=== PATIENT | female | born 1955 | race Caucasian/White ===

== ENCOUNTER 2021-09-23 16:08 | Outpatient (CLI) | payer MEDICARE, OTHER | END 2021-09-23 16:09 | disposition home or self-care (01) | LOC: CTENTCT 16:08 | PROVIDERS: ATTEND Otolaryngology Plastic Surgery within the Head & Neck | DX: J32.9 Chronic sinusitis, unspecified (principal) | CPT/HCPCS: 70486 ==

== ENCOUNTER 2022-03-12 08:53 | Day surgery (SDC) | payer MEDICARE, OTHER ==
[2022-03-10 11:50] VITALS: BMI 25.4
[2022-03-12] MEDS ORDERED: AFRIN NASAL MIST 15 ML BOT ONE ×2 (09:59→11:15)
[2022-03-12] MEDS ORDERED: Famotidine/PF 20 mg/2ml Vial ONE (10:37)
[2022-03-12] MEDS ORDERED: Scopolamine 1.5 mg/72 hour Patch ONE (10:38)
[2022-03-12] MEDS ORDERED: Lidocaine 1% w/Epinephrine 1:100K 20 ML VIAL ONE (11:15)
[2022-03-12] MEDS ORDERED: Midazolam HCl 2 mg/2 ml Vial ONE (11:20)
[2022-03-12] MEDS ORDERED: Fentanyl 250 MCG/5 ML VIAL ONE (11:20)
[2022-03-12] MEDS ORDERED: Fentanyl 100 MCG/2 ML VIAL ONE (12:58)
[2022-03-12] MEDS ORDERED: Hydrocodone-Acetamin 15 ML UDCUP ONE (14:14)
[2022-03-12] MEDS ORDERED: Lidocaine 1% PF 5 ML VIAL ONE (14:31)
[2022-03-12] MEDS ORDERED: Dexamethasone 20 MG/5 ML VIAL ONE (14:31)
[2022-03-12] MEDS ORDERED: Glycopyrrolate 0.2 MG/ML 5 ML SYRINGE ONE (14:31)
[2022-03-12] MEDS ORDERED: PROPOFOL 200 MG/20 ML VIAL ONE (14:31)
[2022-03-12] MEDS ORDERED: Rocuronium Bromide 10 MG/ML (10ML VIAL) ONE (14:31)
[2022-03-12] MEDS ORDERED: Ondansetron PF 4 MG/2 ML Vial ONE (14:31)
[2022-03-12] MEDS ORDERED: Succinylcholine 200 MG/10 ml SYRINGE FS ONE (14:31)
== END 2022-03-12 14:55 | disposition home or self-care (01) ==
LOC: SDC 08:53
PROVIDERS: ATTEND Otolaryngology Plastic Surgery within the Head & Neck
PROC: 8E09XBZ Computer Assisted Procedure of Head and Neck Region (ICD-10-PCS; principal; 2022-03-12)
PROC: 09BT8ZZ Excision of Left Frontal Sinus, Via Natural or Artificial Opening Endoscopic (ICD-10-PCS; 2022-03-12)
PROC: 099S8ZZ Drainage of Right Frontal Sinus, Via Natural or Artificial Opening Endoscopic (ICD-10-PCS; 2022-03-12)
PROC: 099R8ZZ Drainage of Left Maxillary Sinus, Via Natural or Artificial Opening Endoscopic (ICD-10-PCS; 2022-03-12)
PROC: 099Q8ZZ Drainage of Right Maxillary Sinus, Via Natural or Artificial Opening Endoscopic (ICD-10-PCS; 2022-03-12)
PROC: 09TV8ZZ Resection of Left Ethmoid Sinus, Via Natural or Artificial Opening Endoscopic (ICD-10-PCS; 2022-03-12)
PROC: 09TU8ZZ Resection of Right Ethmoid Sinus, Via Natural or Artificial Opening Endoscopic (ICD-10-PCS; 2022-03-12)
PROC: 09TL7ZZ Resection of Nasal Turbinate, Via Natural or Artificial Opening (ICD-10-PCS; 2022-03-12)
DX: J32.8 Other chronic sinusitis (principal); J34.3 Hypertrophy of nasal turbinates; J34.89 Other specified disorders of nose and nasal sinuses; G50.1 Atypical facial pain; Z79.890 Hormone replacement therapy; Z79.899 Other long term (current) drug therapy; Z88.1 Allergy status to other antibiotic agents; Z88.5 Allergy status to narcotic agent
CPT/HCPCS: J1100; J2250; J2405; J2704; J3010; S0028

== ENCOUNTER 2022-05-08 13:30 | Outpatient (CLI) | payer MEDICARE, OTHER | END 2022-05-08 13:31 | disposition home or self-care (01) | LOC: BICRAD 13:30 | PROVIDERS: ATTEND Specialist | DX: M54.2 Cervicalgia (principal); M47.812 Spondylosis without myelopathy or radiculopathy, cervical region | CPT/HCPCS: 72050 ==

== ENCOUNTER 2022-05-14 09:05 | Outpatient (CLI) | payer MEDICARE, OTHER | END 2022-05-14 09:06 | disposition home or self-care (01) | LOC: SCSMRI 09:05 | PROVIDERS: ATTEND Specialist | DX: M54.2 Cervicalgia (principal); M47.812 Spondylosis without myelopathy or radiculopathy, cervical region; M47.813 Spondylosis without myelopathy or radiculopathy, cervicothoracic region | CPT/HCPCS: 72141 ==

== ENCOUNTER 2022-05-22 08:38 | Outpatient (CLI) | payer MEDICARE, OTHER | END 2022-05-22 08:39 | disposition home or self-care (01) | LOC: BICMAMMO 08:38 | PROVIDERS: ATTEND Specialist | DX: Z12.31 Encounter for screening mammogram for malignant neoplasm of breast (principal); Z91.89 Other specified personal risk factors, not elsewhere classified; Z80.3 Family history of malignant neoplasm of breast | CPT/HCPCS: 77063; 77067 ==

== ENCOUNTER 2022-12-01 11:31 | Outpatient (CLI) | payer MEDICARE, OTHER ==
[2022-12-01 13:23] LABS: Hemoglobin 13.6 g/dL (12.0-15.5); Mean Corpuscular Hemoglobin 30.8 pg (27.0-33.0); Mean Corpuscular Volume 90.5 fl (81.6-98.3); Mean Platelet Volume 9.9 fl (7.4-10.4); Platelet Count 295 10x3/uL (150-450); RBC Distribution Width 12.3 % (11.5-14.5); Red Blood Cell (RBC) Count 4.42 10x6/uL (3.90-5.03); White Blood Cell (WBC) Count 5.1 10x3/uL (3.5-10.5)
[2022-12-01 13:51] LABS: Anion Gap 12 mmol/L (10-20); BUN (Urea Nitrogen) 12 mg/dL (9.8-20.1); Calc. Creatinine Clearance 0 mL/min (70-130); Calcium 10.3 mg/dL (7.8-10.44); Carbon Dioxide 27 mmol/L (23-31); Chloride 104 mmol/L (98-107); Estimated GFR 81; Glucose 81 mg/dL (80-115); Potassium 4.1 mmol/L (3.5-5.1); Sodium 139 mmol/L (136-145)
== END 2022-12-01 11:32 | disposition home or self-care (01) ==
LOC: LABBT 11:31
PROVIDERS: ATTEND Neurological Surgery
DX: Z01.818 Encounter for other preprocedural examination (principal); M47.12 Other spondylosis with myelopathy, cervical region
CPT/HCPCS: 80048; 85027; 93005; 93010

== ENCOUNTER 2022-12-08 07:33 | Day surgery (SDC) | payer MEDICARE, OTHER ==
[2022-12-04 12:02] VITALS: BMI 25.4
[2022-12-08] MEDS ORDERED: Sodium Chloride 0.9% 100 ML ONE (08:36)
[2022-12-08] MEDS ORDERED: CEFAZOLIN 2 GM VIAL ONE (08:36)
[2022-12-08] MEDS ORDERED: Lidocaine 1% MPF 2 ML VIAL ONE (08:37)
[2022-12-08] MEDS ORDERED: Scopolamine 1.5 mg/72 hour Patch ONE (09:18)
[2022-12-08] MEDS ORDERED: Fentanyl 250 MCG/5 ML VIAL ONE (09:54)
[2022-12-08] MEDS ORDERED: Midazolam HCl 2 mg/2 ml Vial ONE (09:54)
[2022-12-08] MEDS ORDERED: Lidocaine 2% 6 ML SYR ONE (10:04)
[2022-12-08] MEDS ORDERED: Glycopyrrolate 0.2 MG/ML 5 ML SYRINGE ONE (10:07)
[2022-12-08] MEDS ORDERED: Ondansetron PF 4 MG/2 ML Vial ONE (10:07)
[2022-12-08] MEDS ORDERED: diphenhydrAMINE 50 MG/ML VIAL ONE (10:07)
[2022-12-08] MEDS ORDERED: Ketorolac Tromethamine 30 MG/ML VIAL ONE (10:07)
[2022-12-08] MEDS ORDERED: Metoclopramide HCl 10 MG/2 ML VIAL ONE (10:07)
[2022-12-08] MEDS ORDERED: PROPOFOL 200 MG/20 ML VIAL ONE (10:07)
[2022-12-08] MEDS ORDERED: Rocuronium Bromide 10 MG/ML (10ML VIAL) ONE (10:07)
[2022-12-08] MEDS ORDERED: NEOSTIGMINE 3 MG/3 ML SYR 3 MG/3 ML SYRINGE ONE (10:07)
[2022-12-08] MEDS ORDERED: Dexamethasone 20 MG/5 ML VIAL ONE (10:07)
[2022-12-08] MEDS ORDERED: ePHEDrine 50 MG/ML VIAL ONE (10:07)
[2022-12-08] MEDS ORDERED: Fentanyl 100 MCG/2 ML VIAL ONE (11:23)
[2022-12-08] MEDS ORDERED: HYDROcodone/Acetaminophen 5/325 mg Tablet ONE (12:55)
== END 2022-12-08 14:00 | disposition home or self-care (01) ==
LOC: SDC 07:33
PROVIDERS: ATTEND Neurological Surgery
PROC: 0RG10A0 Fusion of Cervical Vertebral Joint with Interbody Fusion Device, Anterior Approach, Anterior Column, Open Approach (ICD-10-PCS; principal; 2022-12-08)
DX: M50.022 Cervical disc disorder at C5-C6 level with myelopathy (principal); M47.12 Other spondylosis with myelopathy, cervical region; E07.9 Disorder of thyroid, unspecified; Z79.890 Hormone replacement therapy; Z79.899 Other long term (current) drug therapy; Z88.1 Allergy status to other antibiotic agents; Z88.5 Allergy status to narcotic agent
CPT/HCPCS: C1713; J1100; J1200; J1885; J2250; J2405; J2704; J2765; J3010; J3490

== ENCOUNTER 2022-12-24 13:59 | Outpatient (CLI) | payer MEDICARE, OTHER | END 2022-12-24 14:00 | disposition home or self-care (01) | LOC: TBSIIMAG 13:59 | PROVIDERS: ATTEND Neurological Surgery | DX: M47.812 Spondylosis without myelopathy or radiculopathy, cervical region (principal); Z98.1 Arthrodesis status | CPT/HCPCS: 72040 ==

== ENCOUNTER 2023-02-18 10:43 | Outpatient (CLI) | payer MEDICARE | END 2023-02-18 10:44 | disposition home or self-care (01) | LOC: TBSIIMAG 10:43 | PROVIDERS: ATTEND Physician Assistant | DX: M50.30 Other cervical disc degeneration, unspecified cervical region (principal); M47.812 Spondylosis without myelopathy or radiculopathy, cervical region; R29.890 Loss of height; M46.02 Spinal enthesopathy, cervical region; Z98.890 Other specified postprocedural states | CPT/HCPCS: 72040 ==

== ENCOUNTER 2024-04-06 10:30 | Outpatient (CLI) | payer MEDICARE | END 2024-04-06 10:31 | disposition home or self-care (01) | LOC: BICMAMMO 10:30 | PROVIDERS: ATTEND Specialist | DX: Z12.31 Encounter for screening mammogram for malignant neoplasm of breast (principal); Z80.3 Family history of malignant neoplasm of breast; Z91.89 Other specified personal risk factors, not elsewhere classified | CPT/HCPCS: 77063; 77067 ==